=== PATIENT | male | born 1995 | race Two or more races ===

== ENCOUNTER 2017-06-09 12:19 | Emergency (ER) | payer SELFPAY ==
[~2017-06-09] VITALS: Ht 170.2 cm; Wt 95.3 kg
[2017-06-09 12:33] VITALS: BP 149/79
[2017-06-09] MEDS ORDERED: KENALOG 0.025%15 GM APPLIC (13:00)
[2017-06-09] MEDS ORDERED: DIPHENHYDRAMINE25 M1 ORAL (13:00)
[2017-06-09 13:07] VITALS: BP 149/79
--- NOTE | 2017-06-09 15:35 | Emergency Room Report ---
History of Present Illness General Chief Complaint: Skin Rash/Abscess Source: Patient Present Illness HPI The patient is a 22-year-old male presenting for skin rash and difficulty sleeping. He states that he noticed a rash 3 days prior on both arms and both legs. He describes this as very itchy. He denies any pain. He states that it has become difficult to sleep due to the itchiness. He has taken Benadryl at home once today which does not seem to be helping. He states that his fianc has been experiencing similar symptoms. He denies any known allergies. He denies using new detergents or bed sheets. He denies any other symptoms Allergies: Coded Allergies: No Known Allergies (Unverified , 06/09/17) Patient History Past Medical History: see triage record Pertinent Family History: none Reviewed Nursing Documentation: PMH: Agreed, PSxH: Agreed Nursing Documentation-PMH Past Medical History: No Stated History Review of Systems All Other Systems: negative except mentioned in HPI Physical Exam Vital Signs Date Time Temp Pulse Resp B/P (MAP) Pulse Ox O2 Delivery O2 Flow Rate FiO2 06/09/17 12:26 97.9 71 20 149/79 98 Room Air Sp02 EP Interpretation: reviewed, normal General Appearance: no apparent distress, alert, GCS 15, non-toxic Head: normocephalic, atraumatic Eyes: bilateral eye normal inspection, bilateral eye PERRL ENT: hearing grossly normal, normal pharynx, no angioedema, normal voice Neck: full range of motion, supple/symm/no masses Respiratory: chest non-tender, lungs clear, normal breath sounds, speaking full sentences Musculoskeletal: normal inspection, back normal, normal range of motion Neurologic: alert, oriented x3, responsive, motor strength/tone normal, sensory intact, speech normal Psychiatric: judgement/insight normal, memory normal, mood/affect normal, no suicidal/homicidal ideation Skin: rash - Multiple circular approximately 1 cm in diameter erythematous macular lesions on bilateral arms and lower legs. No surrounding erythema. Nontender. Medical Decision Making PA Attestation Dr. Antunez is my supervising physician. Patient management was discussed with my supervising physician Diagnostic Impression: Primary Impression: Insect bite Qualified Codes: W57.XXXA - Bitten or stung by nonvenomous insect and other nonvenomous arthropods, initial encounter ER Course The patient is a 22-year-old male presenting for skin rash and difficulty sleeping. Ddx considered include but not limited to insect bite, contact dermatitis, eczema, cellulitis PE: Afebrile. NAD There are small circular macular erythematous lesions on bilateral arms and lower legs only. No burrowing. No scaling. Nontender These appear to be insect bites. Patient be treated with topical steroids and Benadryl. He will make sure he cleans his room thoroughly He will follow up with primary doctor. ER precautions are given Last Vital Signs Date Time Temp Pulse Resp B/P (MAP) Pulse Ox O2 Delivery O2 Flow Rate FiO2 06/09/17 13:07 97.9 69 20 149/79 98 Room Air Status: improved Disposition: HOME, SELF-CARE Condition: Improved Scripts Triamcinolone Acet (Triamcinolone Acetonide) 15 Gm Cream..g. 15 GM APPLIC TID, #15 GM Prov: YADI SCALES 06/09/17 Diphenhydramine Hcl* (DIPHENHYDRAMINE HCL*) 25 Mg Capsule 50 MG ORAL BEDTIME Y for Itching, #30 CAP 0 Refills Prov: YADI SCALES 06/09/17 Referrals: NON PHYSICIAN (PCP) Patient Instructions: Rash Additional Instructions: I discussed my findings with the patient. All questions and concerns have been answered. Treatment and medication compliance have been addressed. I advised the patient that they need to follow up with PMD in 3-5 days. Return to ED if symptoms worsen, new symptoms arise, or if needed for any reason. Patient verbalized understanding of discharge instructions. YADI SCALES Jun 09, 2017 15:35
== END 2017-06-09 13:10 | disposition home or self-care (01) ==
LOC: EMR 12:57
DX: T14.8XXA Other injury of unspecified body region, initial encounter (principal); W57.XXXA Bitten or stung by nonvenomous insect and other nonvenomous arthropods, initial encounter; Y93.9 Activity, unspecified; Y99.9 Unspecified external cause status; R21 Rash and other nonspecific skin eruption
CPT/HCPCS: 99283